=== PATIENT | female | born 1945 | race Caucasian/White ===

== ENCOUNTER 2017-03-20 19:36 | Emergency (ER) | payer MEDICARE, OTHER ==
[~2017-03-20] VITALS: Ht 167.6 cm; Wt 95.5 kg
[~2017-03-20 19:36] MED LIST: HCTZ 25MG TAB25 MG PO; KLOR-CON M2020 MEQ PO; LASIX 20MG TABL20 MG PO; LEVOXYL0.05 MG PO; LEXAPRO 10MG10 MG PO; LISINOPRIL20 MG PO; MICARDIS80 MG PO; NEXIUM 40MG40 MG PO; NEXIUM40 MG PO; NORVASC 10MG10 MG PO; PREMARIN0.625 MG PO; VESICARE PO; VESICARE10 MG PO
[2017-03-20 19:57] VITALS: TEMP 98.7
[2017-03-20] MEDS ORDERED: NORCO 325 MG-51 TAB PO (21:56)
[2017-03-20 22:15] VITALS: BP 139/49; PULSE 62
[2017-07-14] MEDS ORDERED: GLUCOPHAGE1000 MG PO (10:23)
== END 2017-03-20 22:15 | disposition home or self-care (01) ==
LOC: COL.ER 19:36
DX: S83.92XA Sprain of unspecified site of left knee, initial encounter (principal); S86.912A Strain of unspecified muscle(s) and tendon(s) at lower leg level, left leg, initial encounter; W19.XXXA Unspecified fall, initial encounter; Y92.73 Farm field as the place of occurrence of the external cause; I10 Essential (primary) hypertension; E11.9 Type 2 diabetes mellitus without complications
CPT/HCPCS: J2405; J3010; L1830

== ENCOUNTER → 2017-04-05 | Outpatient (CLI) | payer MEDICARE, OTHER ==
[~2017-04-05] MED LIST changes: +GLUCOPHAGE1000 MG PO; +NORCO 325 MG-51 TAB PO
== END ==
LOC: COL.RAD 14:06
DX: M17.12 Unilateral primary osteoarthritis, left knee (principal); M79.81 Nontraumatic hematoma of soft tissue

== ENCOUNTER → 2017-05-11 | Outpatient (CLI) | payer MEDICARE, OTHER | LOC: COL.RAD 10:08 | DX: K76.0 Fatty (change of) liver, not elsewhere classified (principal); R16.0 Hepatomegaly, not elsewhere classified ==

== ENCOUNTER → 2017-07-14 | Outpatient (CLI) | payer MEDICARE, OTHER ==
[~2017-07-14] VITALS: Ht 167.6 cm; Wt 43.7 kg
[2017-07-14] VITALS (8 sets, daily range): BP systolic 139–165; BP diastolic 66–77; PULSE 51–56
[2017-07-14 10:53] LABS: INR 1.1 (0.8-3.0); PROTHROMBIN TIME 11.9 SECONDS (9.7-12.8)
== END ==
LOC: COL.RAD 09:30
PROVIDERS: Radiology Diagnostic Radiology
DX: K76.0 Fatty (change of) liver, not elsewhere classified (principal); Z86.010 Personal history of colon polyps
CPT/HCPCS: 25757

== ENCOUNTER 2017-09-09 10:19 | Day surgery (SDC) | payer MEDICARE, OTHER ==
[~2017-09-09] VITALS: Ht 167.6 cm; Wt 94.3 kg
[2017-09-09 10:46] VITALS: BP 138/71; PULSE 58; TEMP 98.2
[2017-09-09] MEDS ORDERED: LIPITOR20 MG PO (11:04)
[2017-09-09] MEDS ORDERED: MULTIVITAMIN FO1 CAP PO (11:04)
[2017-09-09] MEDS ORDERED: ALEVE 220MG220 MG PO (11:05)
[2017-09-09 12:05] VITALS: BP 116/64; PULSE 54; TEMP 97.6
[2017-09-09 12:20] VITALS: BP 119/68; PULSE 51
[2017-09-09 12:35] VITALS: BP 111/61; PULSE 51
[2017-09-09 12:50] VITALS: BP 110/63; PULSE 58
== END 2017-09-09 13:00 | disposition home or self-care (01) ==
LOC: SDCO 10:19
DX: Z12.11 Encounter for screening for malignant neoplasm of colon (principal); K57.30 Diverticulosis of large intestine without perforation or abscess without bleeding; K21.9 Gastro-esophageal reflux disease without esophagitis; I10 Essential (primary) hypertension; E78.00 Pure hypercholesterolemia, unspecified; E11.9 Type 2 diabetes mellitus without complications; K76.0 Fatty (change of) liver, not elsewhere classified; Z86.010 Personal history of colon polyps; Z83.79 Family history of other diseases of the digestive system
CPT/HCPCS: J2250; J2405; J3010; J7030; J7042

== ENCOUNTER → 2018-02-15 | Outpatient (CLI) | payer MEDICARE, OTHER ==
[~2018-02-15] MED LIST changes: +ALEVE 220MG220 MG PO; +LIPITOR20 MG PO; +MULTIVITAMIN FO1 CAP PO
== END ==
LOC: MC.RAD 13:16
DX: Z12.31 Encounter for screening mammogram for malignant neoplasm of breast (principal)

== ENCOUNTER → 2019-02-19 | Outpatient (CLI) | payer MEDICARE, OTHER | LOC: MC.RAD 13:00 | DX: Z12.31 Encounter for screening mammogram for malignant neoplasm of breast (principal) ==

== ENCOUNTER → 2019-05-24 | Outpatient (CLI) | payer MEDICARE, OTHER | LOC: COL.VAS 12:27 | DX: M79.89 Other specified soft tissue disorders (principal) ==

== ENCOUNTER → 2019-07-02 | Outpatient (CLI) | payer MEDICARE, OTHER | LOC: COL.VAS 09:26 | DX: I27.20 Pulmonary hypertension, unspecified (principal); I50.9 Heart failure, unspecified; K80.20 Calculus of gallbladder without cholecystitis without obstruction ==

== ENCOUNTER → 2019-09-13 | Outpatient (CLI) | payer MEDICARE, OTHER | LOC: COL.RAD 07:23 | DX: K21.9 Gastro-esophageal reflux disease without esophagitis (principal); K44.9 Diaphragmatic hernia without obstruction or gangrene ==

== ENCOUNTER → 2019-11-06 | Outpatient (CLI) | payer MEDICARE, OTHER | LOC: COL.RAD 10:53 | DX: K75.4 Autoimmune hepatitis (principal); R74.8 Abnormal levels of other serum enzymes; K76.0 Fatty (change of) liver, not elsewhere classified; K80.20 Calculus of gallbladder without cholecystitis without obstruction ==

== ENCOUNTER → 2019-12-17 | Outpatient (CLI) | payer MEDICARE, OTHER | LOC: COL.RAD 07:47 | DX: K21.9 Gastro-esophageal reflux disease without esophagitis (principal); R14.2 Eructation; R11.10 Vomiting, unspecified | CPT/HCPCS: A9541 ==

== ENCOUNTER → 2020-05-06 | Outpatient (CLI) | payer MEDICARE, OTHER | LOC: COL.RAD 07:29 | DX: K75.4 Autoimmune hepatitis (principal); K80.80 Other cholelithiasis without obstruction ==

== ENCOUNTER → 2020-07-31 | Outpatient (CLI) | payer MEDICARE, OTHER | LOC: COL.RAD 10:17 | DX: N30.20 Other chronic cystitis without hematuria (principal) ==

== ENCOUNTER → 2021-01-06 | Outpatient (CLI) | payer MEDICARE, OTHER | LOC: COL.RAD 12:07 | DX: K21.9 Gastro-esophageal reflux disease without esophagitis (principal); K75.4 Autoimmune hepatitis ==

== ENCOUNTER → 2021-01-21 | Outpatient (CLI) | payer MEDICARE, OTHER ==
[~2021-01-21] MED LIST changes: +ALDACTONE 25MG25 M1 PO; +BACTRIM DS 8001 TAB PO; +CEFTIN 250250 MG/TAB PO; +CELLCEPT 5500 MG/TAB PO; +CLEOCIN HCL300 MG PO; +COLACE 100100 MG/CAP PO; +FLOMAX 0.40.4 MG/CAP PO; +FLORAJEN A20 Billion PO; +LEVAQUIN 2250 MG/TAB PO; +MACROBID 1100 MG/CAP PO; +NORVASC 5MG5 MG/TAB PO; +PRINIVIL2.5 MG PO; +PROTONIX 40MG T40 MG PO; +THERACRAN650 MG PO; +TOVIAZ8 MG PO; +TYLENOL 500MG500 MG PO
== END ==
LOC: COL.RAD 13:04
DX: N13.30 Unspecified hydronephrosis (principal)

== ENCOUNTER 2021-02-05 13:49 | Day surgery (SDC) | payer MEDICARE, OTHER ==
[2021-02-05] VITALS (8 sets, daily range): BP systolic 132–145; BP diastolic 52–75; PULSE 72–86; TEMP 97.6–98.2
[~2021-02-05] VITALS: Ht 165.1 cm; Wt 99.4 kg
[~2021-02-05 13:49] MED LIST changes: -ALDACTONE 25MG25 M1 PO; -BACTRIM DS 8001 TAB PO; -CEFTIN 250250 MG/TAB PO; -CELLCEPT 5500 MG/TAB PO; -CLEOCIN HCL300 MG PO; -COLACE 100100 MG/CAP PO; -FLOMAX 0.40.4 MG/CAP PO; -FLORAJEN A20 Billion PO; -LEVAQUIN 2250 MG/TAB PO; -MACROBID 1100 MG/CAP PO; -NORVASC 5MG5 MG/TAB PO; -PRINIVIL2.5 MG PO; -PROTONIX 40MG T40 MG PO; -THERACRAN650 MG PO; -TOVIAZ8 MG PO; -TYLENOL 500MG500 MG PO
[2021-02-05] MEDS ORDERED: NORVASC 5MG5 MG/TAB PO (15:16)
[2021-02-05] MEDS ORDERED: CELLCEPT 5500 MG/TAB PO (15:30)
[2021-02-05] MEDS ORDERED: PRINIVIL2.5 MG PO (15:31)
[2021-02-05] MEDS ORDERED: PROTONIX 40MG T40 MG PO (15:32)
[2021-02-05] MEDS ORDERED: ALDACTONE 25MG25 M1 PO (15:34)
[2021-02-05] MEDS ORDERED: COLACE 100100 MG/CAP PO (15:35)
[2021-02-05] MEDS ORDERED: TOVIAZ8 MG PO (15:35)
[2021-02-05] MEDS ORDERED: FLORAJEN A20 Billion PO (15:37)
[2021-02-05] MEDS ORDERED: THERACRAN650 MG PO (15:38)
[2021-02-05] MEDS ORDERED: CLEOCIN HCL300 MG PO (15:39)
[2021-02-05] MEDS ORDERED: TYLENOL 500MG500 MG PO (15:42)
[2021-02-05] MEDS ORDERED: FLOMAX 0.40.4 MG/CAP PO (17:07)
[2021-02-05] MEDS ORDERED: NORCO 325 MG-51 TAB PO (17:07)
--- NOTE | 2021-02-05 18:00 | NUR ---
PATIENT ADMITED INTO ROOM 348 POST OP. A&O. VSS. NO C/O PAIN OR NAUSEA. HEAD TO TOE ASSESSMENT WNL. PATIENT WILL DISCHARGE HOME TONIGHT WHEN CRITERIA MEET. PATIENT ASSISTED TO BATHROOM AND WAS ABLE TO VOID. PATIENT SHOWN HOW TO ORDER FOOD.
--- NOTE | 2021-02-05 20:20 | NUR ---
Pt has eaten and voided. Pain is minimal. Ready to go home. Discharge instructions reviewed with patient. INT dc'd from rt wrist, angiocath intact. Getting dressed and will call her ride.
--- NOTE | 2021-02-05 20:40 | NUR ---
Pt discharged via w/c to private car. Copy of discharge instructions sent with patient as well as her personal belongings.
[2021-09-03] MEDS ORDERED: MACROBID 1100 MG/CAP PO (13:00)
[2021-09-30] MEDS ORDERED: LEVAQUIN 2250 MG/TAB PO (13:53)
== END 2021-02-05 20:40 | disposition home or self-care (01) ==
LOC: SDCO → SURG 18:00 → SDCO 20:40
DX: N13.2 Hydronephrosis with renal and ureteral calculous obstruction (principal); N39.41 Urge incontinence; K21.9 Gastro-esophageal reflux disease without esophagitis; I10 Essential (primary) hypertension; G47.33 Obstructive sleep apnea (adult) (pediatric); E11.9 Type 2 diabetes mellitus without complications; F32.9 Major depressive disorder, single episode, unspecified; Z96.651 Presence of right artificial knee joint; Z79.899 Other long term (current) drug therapy; Z87.440 Personal history of urinary (tract) infections; Z79.84 Long term (current) use of oral hypoglycemic drugs; Z79.82 Long term (current) use of aspirin; Z88.8 Allergy status to other drugs, medicaments and biological substances; Z88.0 Allergy status to penicillin; Z20.822 Contact with and (suspected) exposure to COVID-19; Z99.89 Dependence on other enabling machines and devices
CPT/HCPCS: OP; C1769; C2617; J0690; J1100; J1956; J2405; J2704; J3010; J7120; Q9967

== ENCOUNTER → 2021-06-19 | Outpatient (CLI) | payer MEDICARE, OTHER ==
[~2021-06-19] MED LIST changes: +ALDACTONE 25MG25 M1 PO; +BACTRIM DS 8001 TAB PO; +CEFTIN 250250 MG/TAB PO; +CELLCEPT 5500 MG/TAB PO; +CLEOCIN HCL300 MG PO; +COLACE 100100 MG/CAP PO; +FLOMAX 0.40.4 MG/CAP PO; +FLORAJEN A20 Billion PO; +LEVAQUIN 2250 MG/TAB PO; +MACROBID 1100 MG/CAP PO; +NORVASC 5MG5 MG/TAB PO; +PRINIVIL2.5 MG PO; +PROTONIX 40MG T40 MG PO; +THERACRAN650 MG PO; +TOVIAZ8 MG PO; +TYLENOL 500MG500 MG PO
== END ==
LOC: COL.RAD 07:04
DX: K75.4 Autoimmune hepatitis (principal); B19.20 Unspecified viral hepatitis C without hepatic coma; R74.8 Abnormal levels of other serum enzymes; R14.0 Abdominal distension (gaseous); R14.2 Eructation

== ENCOUNTER → 2021-08-24 | Outpatient (CLI) | payer MEDICARE, OTHER | LOC: COL.RAD 11:33 | DX: N39.0 Urinary tract infection, site not specified (principal); Z87.442 Personal history of urinary calculi ==

== ENCOUNTER 2021-09-01 15:28 | Emergency (ER) | payer MEDICARE, OTHER ==
[~2021-09-01] VITALS: Ht 162.6 cm; Wt 99.1 kg
[~2021-09-01 15:28] MED LIST changes: -BACTRIM DS 8001 TAB PO; -CEFTIN 250250 MG/TAB PO; -LEVAQUIN 2250 MG/TAB PO; -MACROBID 1100 MG/CAP PO
[2021-09-01 18:23] LABS: COLLECTION METHOD CLEAN CATCH
[2021-09-01 18:27] LABS: BASO # 0.1 K/mm3 (0.0-0.2); BASO % 0.7 % (0.0-2.0); EOS # 0.2 K/mm3 (0.0-0.7); EOS % 1.7 % (0-4.0); GRAN # 8.9 K/mm3 (1.4-6.5); GRAN % 77.8 % (42.2-75.2); HEMATOCRIT 43.5 % (37.0-47.0); HEMOGLOBIN 13.9 g/dl (12.5-16.0); LYMPH # 1.5 K/mm3 (1.2-3.4); LYMPH % 12.7 % (20.0-51.0); MEAN CELL VOLUME 89 fl (80.0-100.0); MEAN CORPUSCULAR HEMOGLOBIN 28 pg (27.0-31.0); MEAN CORPUSCULAR HGB CONC 32 g/dl (33.0-37.0); MEAN PLATELET VOLUME 9.9 fl (7.4-10.4); MONO # 0.8 K/mm3 (0.1-0.6); MONO % 6.6 % (1.7-9.3); PLATELET COUNT 304 K/mm3 (130-400); RED BLOOD COUNT 4.89 M/mm3 (4.10-5.30); REDCELL DISTRIBUTION WIDTH-CV 13.6 % (11.5-14.5)
[2021-09-01 18:34] LABS: PH 5 (5-8); SQUAMOUS EPITHELIAL None Seen /hpf; URINE APPEARANCE Hazy; URINE BACTERIA Rare /hpf; URINE BILIRUBIN Negative (NEGATIVE); URINE BLOOD 2+ (NEGATIVE); URINE COLOR Amber; URINE GLUCOSE Negative (NEGATIVE); URINE KETONE Negative (NEGATIVE); URINE LEUKOCYTE ESTERASE 1+ (NEGATIVE); URINE NITRATE Positive (NEGATIVE); URINE PROTEIN(semi-quant) Negative (NEGATIVE)
[2021-09-01 18:55] LABS: BILIRUBIN,TOTAL 0.6 mg/dL (0.2-1.2); C-REACTIVE PROTEIN 0.1 mg/dL (0.00-0.50); CALCIUM 9.4 mg/dL (8.4-10.2); POTASSIUM 3.1 mmol/L (3.5-4.5); TOTAL PROTEIN 7.4 gm/dL (6.2-8.1)
[2021-09-01] MEDS ORDERED: CEFTIN 250250 MG/TAB PO (21:22)
[2021-09-01 21:36] VITALS: BP 152/84; PULSE 65; TEMP 98.7
[2021-09-03] MEDS ORDERED: MACROBID 1100 MG/CAP PO (13:00)
[2021-09-30] MEDS ORDERED: LEVAQUIN 2250 MG/TAB PO (13:53)
== END 2021-09-01 21:41 | disposition home or self-care (01) ==
LOC: COL.ER 15:28
PROVIDERS: Nurse Practitioner; Physician Assistant
DX: K80.20 Calculus of gallbladder without cholecystitis without obstruction (principal); N39.0 Urinary tract infection, site not specified; I10 Essential (primary) hypertension; E78.5 Hyperlipidemia, unspecified; K21.9 Gastro-esophageal reflux disease without esophagitis; E11.9 Type 2 diabetes mellitus without complications; Z88.0 Allergy status to penicillin; Z79.84 Long term (current) use of oral hypoglycemic drugs; Z79.899 Other long term (current) drug therapy
CPT/HCPCS: J0696; J2270; J2405; J7030; Q9967

== ENCOUNTER 2021-09-21 16:30 | Emergency (ER) | payer MEDICARE, OTHER ==
[~2021-09-21] VITALS: Ht 162.6 cm; Wt 99.1 kg
[~2021-09-21 16:30] MED LIST changes: +CEFTIN 250250 MG/TAB PO; +MACROBID 1100 MG/CAP PO
[2021-09-21 17:13] LABS: BASO # 0.1 K/mm3 (0.0-0.2); EOS # 0.2 K/mm3 (0.0-0.7); EOS % 2.2 % (0-4.0); GRAN # 5.8 K/mm3 (1.4-6.5); GRAN % 72.5 % (42.2-75.2); HEMATOCRIT 42.4 % (37.0-47.0); HEMOGLOBIN 14.1 g/dl (12.5-16.0); LYMPH # 1.3 K/mm3 (1.2-3.4); LYMPH % 15.5 % (20.0-51.0); MEAN CELL VOLUME 86 fl (80.0-100.0); MEAN CORPUSCULAR HEMOGLOBIN 29 pg (27.0-31.0); MEAN CORPUSCULAR HGB CONC 33 g/dl (33.0-37.0); MEAN PLATELET VOLUME 9.7 fl (7.4-10.4); MONO # 0.7 K/mm3 (0.1-0.6); MONO % 8.2 % (1.7-9.3); PLATELET COUNT 344 K/mm3 (130-400); RED BLOOD COUNT 4.94 M/mm3 (4.10-5.30); REDCELL DISTRIBUTION WIDTH-CV 13.7 % (11.5-14.5)
[2021-09-21 17:29] LABS: BILIRUBIN,TOTAL 0.6 mg/dL (0.2-1.2); CALCIUM 9.9 mg/dL (8.4-10.2); CREATININE, serum 1.01 mg/dL (0.57-1.11); POTASSIUM 3.7 mmol/L (3.5-4.5); TOTAL PROTEIN 7.5 gm/dL (6.2-8.1)
[2021-09-21 17:54] LABS: COLLECTION METHOD CLEAN CATCH
[2021-09-21 18:16] LABS: AMORPHOUS CRYSTAL Present /uL; MUCOUS Present /lpf; PH 5 (5-8); SQUAMOUS EPITHELIAL None Seen /hpf; URINE APPEARANCE Clear; URINE BACTERIA Rare /hpf; URINE BILIRUBIN Negative (NEGATIVE); URINE BLOOD Negative (NEGATIVE); URINE COLOR Straw; URINE GLUCOSE Negative (NEGATIVE); URINE KETONE Negative (NEGATIVE); URINE LEUKOCYTE ESTERASE Negative (NEGATIVE); URINE NITRATE Negative (NEGATIVE); URINE PROTEIN(semi-quant) Negative (NEGATIVE); URINE RBC 0-2 /hpf; URINE UROBILINOGEN Negative (NEGATIVE)
[2021-09-21] MEDS ORDERED: MACROBID 1100 MG/CAP PO (18:34)
[2021-09-21 18:58] VITALS: BP 157/78; PULSE 66; TEMP 98.4
[2021-09-30] MEDS ORDERED: LEVAQUIN 2250 MG/TAB PO (13:53)
== END 2021-09-21 18:58 | disposition home or self-care (01) ==
LOC: COL.ER 16:30
PROVIDERS: Emergency Medicine
DX: N39.0 Urinary tract infection, site not specified (principal); I10 Essential (primary) hypertension; E11.9 Type 2 diabetes mellitus without complications; E78.5 Hyperlipidemia, unspecified; K21.9 Gastro-esophageal reflux disease without esophagitis; Z87.442 Personal history of urinary calculi; Z96.0 Presence of urogenital implants; Z79.899 Other long term (current) drug therapy; Z79.84 Long term (current) use of oral hypoglycemic drugs

== ENCOUNTER 2021-09-28 15:08 | Emergency (ER) | payer MEDICARE, OTHER ==
[~2021-09-28] VITALS: Ht 162.6 cm; Wt 99.1 kg
[2021-09-28 15:22] VITALS: TEMP 97.7
[2021-09-28 16:33] LABS: COLLECTION METHOD CATHETER
[2021-09-28 16:45] LABS: MUCOUS Present /lpf; PH 5 (5-8); SQUAMOUS EPITHELIAL None Seen /hpf; URINE APPEARANCE Cloudy; URINE BACTERIA Rare /hpf; URINE BILIRUBIN Negative (NEGATIVE); URINE BLOOD 2+ (NEGATIVE); URINE COLOR Yellow; URINE GLUCOSE Negative (NEGATIVE); URINE KETONE Negative (NEGATIVE); URINE LEUKOCYTE ESTERASE 3+ (NEGATIVE); URINE NITRATE Negative (NEGATIVE); URINE PROTEIN(semi-quant) 3+ (NEGATIVE); URINE RBC >50 /hpf; URINE UROBILINOGEN Negative (NEGATIVE)
[2021-09-28] MEDS ORDERED: BACTRIM DS 8001 TAB PO ×2 (17:08)
[2021-09-28 17:29] VITALS: BP 150/75; PULSE 63
[2021-09-30] MEDS ORDERED: LEVAQUIN 2250 MG/TAB PO (13:53)
== END 2021-09-28 17:29 | disposition home or self-care (01) ==
LOC: COL.ER 15:08
PROVIDERS: Emergency Medicine
DX: N39.0 Urinary tract infection, site not specified (principal); I10 Essential (primary) hypertension; E78.5 Hyperlipidemia, unspecified; K21.9 Gastro-esophageal reflux disease without esophagitis; E11.9 Type 2 diabetes mellitus without complications; Z87.442 Personal history of urinary calculi; Z88.0 Allergy status to penicillin; Z79.84 Long term (current) use of oral hypoglycemic drugs; Z79.899 Other long term (current) drug therapy

== ENCOUNTER → 2021-12-14 | Outpatient (CLI) | payer MEDICARE, OTHER ==
[~2021-12-14] MED LIST changes: +BACTRIM DS 8001 TAB PO; +LEVAQUIN 2250 MG/TAB PO
== END ==
LOC: COL.RAD 07:44
DX: K75.4 Autoimmune hepatitis (principal); R74.8 Abnormal levels of other serum enzymes; K76.0 Fatty (change of) liver, not elsewhere classified; K63.89 Other specified diseases of intestine; R19.7 Diarrhea, unspecified

== ENCOUNTER → 2021-12-30 | Outpatient (CLI) | payer MEDICARE, OTHER | LOC: COL.LAB 14:09 → COL.RAD 14:20 → COL.LAB 14:20 | DX: Z01.818 Encounter for other preprocedural examination (principal) ==

== ENCOUNTER → 2022-01-11 | Outpatient (CLI) | payer MEDICARE, OTHER | LOC: MC.RAD 08:59 | DX: Z12.31 Encounter for screening mammogram for malignant neoplasm of breast (principal) ==

== ENCOUNTER → 2022-07-13 | Outpatient (CLI) | payer MEDICARE, OTHER | LOC: COL.RAD 08:31 | DX: K76.0 Fatty (change of) liver, not elsewhere classified (principal) ==

== ENCOUNTER → 2023-01-04 | Outpatient (CLI) | payer MEDICARE, OTHER | LOC: COL.RAD 09:16 | DX: I10 Essential (primary) hypertension (principal) ==

== ENCOUNTER → 2023-01-27 | Outpatient (CLI) | payer MEDICARE, OTHER | LOC: MHCPAIN 08:12 | DX: M47.817 Spondylosis without myelopathy or radiculopathy, lumbosacral region (principal); M54.50 Low back pain, unspecified | CPT/HCPCS: J1100; J2250; J3010 ==

== ENCOUNTER → 2023-01-28 | Outpatient (CLI) | payer MEDICARE, OTHER | LOC: COL.RAD 10:27 | DX: K75.4 Autoimmune hepatitis (principal); R74.8 Abnormal levels of other serum enzymes; R19.7 Diarrhea, unspecified; R14.0 Abdominal distension (gaseous) ==

== ENCOUNTER → 2023-04-05 | Outpatient (CLI) | payer MEDICARE, OTHER | LOC: MHCPAIN 10:01 | DX: M47.898 Other spondylosis, sacral and sacrococcygeal region (principal); M46.1 Sacroiliitis, not elsewhere classified; M53.3 Sacrococcygeal disorders, not elsewhere classified | CPT/HCPCS: G0463 ==

== ENCOUNTER → 2023-11-30 | Outpatient (CLI) | payer MEDICARE, OTHER | LOC: COL.RAD 12:40 | DX: J84.89 Other specified interstitial pulmonary diseases (principal); R91.8 Other nonspecific abnormal finding of lung field; R05.3 Chronic cough | CPT/HCPCS: Q9967 ==

== ENCOUNTER → 2024-02-16 | Outpatient (CLI) | payer MEDICARE, OTHER | LOC: COL.RAD 10:00 | DX: R51.9 Headache, unspecified (principal); R29.898 Other symptoms and signs involving the musculoskeletal system ==

== ENCOUNTER → 2024-03-28 | Outpatient (CLI) | payer MEDICARE, OTHER ==
[~2024-03-28] MED LIST changes: +BENTYL 10MG10 MG/CAP PO; +COZAAR 50MG50 MG/TAB PO; +FOLIC ACID0.4 MG PO; +GLUCOPHAGE500 MG/TAB PO; +IBU800 M1 PO; +MAG-OX 400400 MG/TAB PO; +NASACORT OTC NS; +NEOSPORIN1 OIN OP; +PREVAGEN PO; +PROAIR HFA0.09 MG/AC IH; +SYSTANE 0.4%-0.1 SOL OU; +ZOFRAN ODT4 MG PO
[2024-03-28 13:02] LABS: BASO # 0.1 K/mm3 (0.0-0.2); BASO % 0.7 % (0.0-2.0); EOS # 0.1 K/mm3 (0.0-0.7); GRAN # 8.2 K/mm3 (1.4-6.5); GRAN % 76.9 % (42.2-75.2); HEMATOCRIT 45.1 % (37.0-47.0); HEMOGLOBIN 14.5 g/dl (12.5-16.0); LYMPH # 1.4 K/mm3 (1.2-3.4); LYMPH % 12.9 % (20.0-51.0); MEAN CELL VOLUME 87 fl (80.0-100.0); MEAN CORPUSCULAR HEMOGLOBIN 28 pg (27-31); MEAN CORPUSCULAR HGB CONC 32 g/dl (33.0-37.0); MONO # 0.8 K/mm3 (0.1-0.6); MONO % 7.8 % (1.7-9.3); PLATELET COUNT 372 K/mm3 (130-400); RED BLOOD COUNT 5.16 M/mm3 (4.10-5.30)
[2024-03-28 13:14] LABS: ALBUMIN 4.2 g/dL (3.4-4.8); BILIRUBIN,TOTAL 0.7 mg/dL (0.2-1.2); CALCIUM 10.1 mg/dL (8.4-10.2); CREATININE, serum 1.27 mg/dL (0.57-1.11); POTASSIUM 3.6 mEq/L (3.5-4.5); TOTAL PROTEIN 7.4 g/dl (6.2-8.1)
== END ==
LOC: COL.LAB 12:17
PROVIDERS: Physician Assistant
DX: R11.2 Nausea with vomiting, unspecified (principal)

== ENCOUNTER 2024-03-29 12:25 | Emergency (ER) | payer MEDICARE, OTHER ==
[~2024-03-29] VITALS: Ht 165.1 cm; Wt 103.6 kg
[~2024-03-29 12:25] MED LIST changes: -ZOFRAN ODT4 MG PO
[2024-03-29 12:35] VITALS: TEMP 97.7
[2024-03-29] MEDS ORDERED: NS 1,000 ML IV ONE (13:15)
[2024-03-29] MEDS ORDERED: Morphine 4 MG/ML VIAL IV ONE (13:15)
[2024-03-29] MEDS ORDERED: Ondansetron 4 MG/2 ML VIAL IV ONE (13:15)
[2024-03-29 13:55] LABS: BASO # 0.1 K/mm3 (0.0-0.2); BASO % 0.7 % (0.0-2.0); EOS # 0.1 K/mm3 (0.0-0.7); EOS % 1.1 % (0.0-4.0); GRAN # 7.4 K/mm3 (1.4-6.5); GRAN % 71.8 % (42.2-75.2); HEMATOCRIT 43.9 % (37.0-47.0); HEMOGLOBIN 14.4 g/dl (12.5-16.0); LYMPH # 1.8 K/mm3 (1.2-3.4); MEAN CELL VOLUME 85 fl (80.0-100.0); MEAN CORPUSCULAR HEMOGLOBIN 28 pg (27-31); MEAN CORPUSCULAR HGB CONC 33 g/dl (33.0-37.0); MONO # 0.9 K/mm3 (0.1-0.6); MONO % 8.8 % (1.7-9.3); PLATELET COUNT 338 K/mm3 (130-400); RED BLOOD COUNT 5.14 M/mm3 (4.10-5.30); REDCELL DISTRIBUTION WIDTH-CV 13.8 % (11.5-14.5)
[2024-03-29 14:14] LABS: BILIRUBIN,TOTAL 0.9 mg/dL (0.2-1.2); C-REACTIVE PROTEIN 0.14 mg/dL (0.00-0.50); CALCIUM 10.1 mg/dL (8.4-10.2); CREATININE, serum 1.21 mg/dL (0.57-1.11); POTASSIUM 3.7 mEq/L (3.5-4.5); TOTAL PROTEIN 7.4 g/dl (6.2-8.1)
[2024-03-29] MEDS ORDERED: Iohexol 300 - 100 ML VIAL IV ONE (14:37)
[2024-03-29] MEDS ORDERED: NS 100 ML IV SCH (14:38)
[2024-03-29 15:21] LABS: URINE APPEARANCE CLEAR (CLEAR/HAZY); URINE BLOOD 1+ (NEGATIVE); URINE COLOR YELLOW (YELLOW); URINE GLUCOSE NEGATIVE (NEGATIVE); URINE KETONE NEGATIVE (NEGATIVE); URINE NITRATE NEGATIVE (NEGATIVE); URINE PROTEIN(semi-quant) NEGATIVE (NEGATIVE); URINE UROBILINOGEN 0.2 E.U/dL (0.2-1.0)
[2024-03-29 15:38] LABS: SQUAMOUS EPITHELIAL 0-2 /hpf (0-10); URINE BACTERIA MANY /hpf (NONE SEEN); URINE RBC 0-2 /hpf (0-2)
[2024-03-29 15:40] LABS: COLLECTION METHOD CLEAN CATCH
[2024-03-29] MEDS ORDERED: ZOFRAN ODT4 MG PO (15:57)
[2024-03-29] MEDS ORDERED: cefTRIAXone 1 G in Water For Injection,Sterile 10 ML IV ONE (16:00)
[2024-03-29 16:38] VITALS: BP 138/91; PULSE 50
== END 2024-03-29 16:38 | disposition home or self-care (01) ==
LOC: COL.ER 12:25
PROVIDERS: Nurse Practitioner
DX: N39.0 Urinary tract infection, site not specified (principal); R11.2 Nausea with vomiting, unspecified; Z87.442 Personal history of urinary calculi; Z88.0 Allergy status to penicillin; Z88.1 Allergy status to other antibiotic agents
CPT/HCPCS: J0696; J2270; J2405; J7030; Q9967

== ENCOUNTER → 2024-06-04 | Outpatient (CLI) | payer MEDICARE ==
[~2024-06-04] MED LIST changes: +ALLEGRA 180MG180 MG PO; +PEPCID 20MG TAB20 MG PO; +PREVAGEN; +SINGULAIR 110 MG/TAB PO; +SYNTHROID 0.0.025 MG PO; +ZOFRAN ODT4 MG PO
== END ==
LOC: COL.CARD 09:00
DX: I63.9 Cerebral infarction, unspecified (principal)

== ENCOUNTER → 2024-07-12 | Outpatient (CLI) | payer MEDICARE | LOC: MHCPAIN 10:37 | DX: M54.50 Low back pain, unspecified (principal); M53.3 Sacrococcygeal disorders, not elsewhere classified | CPT/HCPCS: G0463 ==

== ENCOUNTER → 2024-07-19 | Outpatient (CLI) | payer MEDICARE ==
[~2024-07-19] MED LIST changes: +Iohexol 300 - 10 ML VIAL ONE; +MACRODANTIN25 MG/CA2 PO
== END ==
LOC: MHCPAIN 10:03
DX: M46.1 Sacroiliitis, not elsewhere classified (principal); M54.50 Low back pain, unspecified
CPT/HCPCS: G0260; J0665; J1010; Q9967

== ENCOUNTER 2024-07-26 07:35 | Outpatient (CLI) | payer MEDICARE ==
[2024-07-26] VITALS (7 sets, daily range): BP systolic 134–156; BP diastolic 72–92; PULSE 66–77; TEMP 97.8
[~2024-07-26] VITALS: Ht 165.1 cm; Wt 105.7 kg
[~2024-07-26 07:35] MED LIST changes: -Iohexol 300 - 10 ML VIAL ONE; -MACRODANTIN25 MG/CA2 PO
[2024-07-26] MEDS ORDERED: MACRODANTIN25 MG/CA2 PO (08:24)
[2024-07-26] MEDS ORDERED: Iohexol 300 - 10 ML VIAL IV ONE (09:26)
--- NOTE | 2024-07-26 11:05 | NUR ---
Pt brought to EU10 by bed post myelogram. Pt bedrest for 1 hr. Offered the pt something to drink, pt declined. Once the recovery time was done discharge education and information discussed with the pt. No questions at the time. Pt exited the unit accompanied by the nurse to friends car.
== END 2024-07-26 10:53 | disposition home or self-care (01) ==
LOC: COL.RAD 07:35
DX: M51.36 Other intervertebral disc degeneration, lumbar region (principal); M48.061 Spinal stenosis, lumbar region without neurogenic claudication; M48.02 Spinal stenosis, cervical region; M89.38 Hypertrophy of bone, other site
CPT/HCPCS: Q9967